=== PATIENT | female | born 1940 | race Caucasian/White ===

== ENCOUNTER 2018-04-29 08:18 | Inpatient (IN) | payer MEDICARE, OTHER ==
[~2018-04-29 08:18] MED LIST: MORPHINE SULFATE 15 MG TABLET.SA PO PRN; TRANEXAMIC ACID 1,000 MG in NORMAL SALINE 100 ML IV PRN; ceFAZolin SODIUM 1 GM VIAL IV PRN
[2018-04-29] MEDS: RINGER'S SOLUTION,LACTATED 1,000 ML IV PRN ×2 (09:21→12:30)
--- NOTE | 2018-04-29 10:26 | ANES ---
Anesthesia Pre Procedure Eval Vitals/Labs: Last Vital Signs Temp 36.6 C 04/29/18 08:37 Pulse 69 04/29/18 08:37 Resp 18 04/29/18 08:37 BP 119/52 04/29/18 08:37 Pulse Ox 94 04/29/18 08:37 HOME MEDICATIONS Amlodipine Besylate 10 mg PO DAILY 01/11/17 [Last Taken 04/29/18] Ca/D3/Mag Ox/Zinc/Supplier Relationship Director/Pio/Bor [Calcium 600+D3 Plus Caplet] 1 ea PO DAILY 01/11/17 [Last Taken 04/28/18] Hydrochlorothiazide [Hydrodiuril] 25 mg PO DAILY 01/11/17 [Last Taken 04/28/18] [place] Oil/[place]-3 Fatty Acids [Fish Oil] 2,000 mg PO DAILY 01/11/17 [Last Taken 04/28/18] hydrocodone 5 mg-acetaminophen 325 mg tablet 1 tab PO Q4H PRN tab 02/11/18 [Last Taken 04/25/18] rosuvastatin 10 mg tablet 10 mg PO DAILY 02/11/18 [Last Taken 04/28/18] tramadol 50 mg tablet 50 mg PO Q12H PRN tab 02/11/18 [Last Taken Unknown] acetaminophen 500 mg tablet 1,000 mg PO BID tab 02/14/18 [Last Taken 04/28/18] trolamine salicylate 10 % lotion 1 applic TP DAILY 02/14/18 [Last Taken 04/28/18] tramadol 50 mg tablet See Rx Instructions PO Q8H #60 tab 03/21/18 [Last Taken Unknown] Fluorouracil 30 gm TP DAILY 04/29/18 [Last Taken 04/28/18] Allergies/Adverse Reactions: Allergies Allergy/AdvReac Type Severity Reaction Status Date / Time naproxen [From [facility]] Allergy Severe Hives, Verified 03/21/18 14:53 difficulty breathing aspirin [From [place]] AdvReac Mild Hives Verified 04/29/18 09:04 citric acid AdvReac Mild Hives Verified 04/29/18 09:04 [From [place]] codeine AdvReac Mild Hives Verified 04/29/18 09:04 penicillin G AdvReac Mild RASH Verified 04/29/18 09:04 sodium bicarbonate AdvReac Mild Hives Verified 04/29/18 09:04 [From [place]] - Planned Procedure Planned Procedure: Right Arthroplasty Total Shoulder Reverse Medication List Reviewed:: Yes Allergies Verified: Yes Medical History (Last Reviewed 04/29/18 @ 10:25 by Brad Tripp CRNA) Current non-drinker of alcohol Current tobacco use Osteoarthritis Wears partial dentures reading glasses skin cancer spots Bilateral shoulder pain Onset Date: Unknown Cervicalgia Onset Date: Unknown Hypercholesteremia Onset Date: Unknown Hypertension Onset Date: Unknown Surgical History (Last Reviewed 04/29/18 @ 10:25 by Brad Tripp CRNA) H/O local excision of skin lesion History of tonsillectomy Colonoscopy planned Onset Date: ~2013 H/O abdominal hysterectomy Onset Date: Unknown Family History (Last Reviewed 04/29/18 @ 10:25 by Brad Tripp CRNA) Brother Cancer Father Myocardial infarction Mother CHF (congestive heart failure) Arthritis Sister Heart disease DJD (degenerative joint disease) Son Alive and well Sister Congenital heart defect fluid around heart Sister Arthritis Daughter Alive and well Daughter Alive and well Daughter - Family Anesthesia History Family History:: no untoward family reactions to anesthesia, no familial bleeding tendencies, no family history of clotting disorders, no family history of premature - Airway/Neck/Teeth Within Normal Limits:: Yes Teeth Condition: Intact Denture Type: Partial- Upper Mallampatti Score: 2 Thyromental (T-M) distance: > 6 cm Mandibulo Hyoid distance: > 3 cm - Respiratory Respiratory: lungs clear - cough Smoking Status: Former smoker Discussed smoking cessation including day of surgery: No Sleep Apnea currently treated: No Sleep Apnea by current assessment: No Discussed Risks/Treatment of ANDREA: No - Cardiovascular Tolerates Activity: Fair Heart Sounds: S1 & S2, Regular - Anesthesia Assessment and Plan ASA Class: PS, II Anesthesia Type Plan: General LMA, Block - Right interscalene nerve block for postop analgesia
--- NOTE | 2018-04-29 13:17 | OR ---
Operative Report - Dictated Report Narrative: DATE OF PROCEDURE: 04/29/2018 PHYSICIAN: Rakan Morrissey MD CO-SURGEON: None STUDENT SERVICES REPRESENTATIVE: Jignesh Fernandes PA-C PREOPERATIVE DIAGNOSIS: Right rotator cuff deficient shoulder arthrosis. POSTOPERATIVE DIAGNOSIS: Right rotator cuff deficient shoulder arthrosis. OPERATIONS AND PROCEDURES: Right reverse total shoulder arthroplasty. ANESTHESIA: General plus regional. COMPLICATIONS: None. DRAINS: None. SPECIMENS: Bone for disposal. ESTIMATED BLOOD LOSS: 100 mL. RETAINED IMPLANTS: 1. DePuy Delta Xtend cementless metaglene. 2. Delta Xtend glenosphere, 38 mm standard. 3. Delta Xtend size 12 modular humeral RUSSELL-coated cementless stem. 4. Size 1 right modular eccentric epiphysis RUSSELL-coated cementless. 5. Delta Xtend standard polyethylene size 38 plus 9 mm. 6. Metaglene locking screws, 30 mm and 36 mm in length. 7. Nonlocking metaglene screws, x2 18 mm . INDICATIONS FOR PROCEDURE: Mrs. Mon is a 77-year-old female with significant past history of rotator cuff tears and deficiency. She had treated these conservatively and had an irreparable rotator cuff with some progression of arthrosis of the shoulder and difficulty with activities of daily living in pain. She was seen in clinic and had failed conservative measures. She wished to proceed with surgical treatment. The risks, benefits, and alternatives were discussed in clinic, including the risk of , blood clots, bleeding, infection, nerve/tendon/blood vessel injury, malposition of components, failure of components, wear or limited range of motion, stiffness, and need for additional procedures, and she wished to proceed. Consent was obtained here in the clinic. DESCRIPTION OF PROCEDURE: After marking the correct extremity in the preoperative holding area, the patient was taken to the operating room. A timeout was performed. IV antibiotics consisting of Ancef were administered prior to procedure. The regional followed by general anesthetic was induced by the nurse applications instructor at my request. She was then transitioned to beach chair position with all bony prominences well padded. The head in neutral, legs with SCDs and supported,and the nonoperative arm supported. The surgical arm was prescrubbed with alchol then prepped and draped in the standard sterile fashion and the skin was covered with ioban. A deltopectoral incision was made and blunt dissection was carried down through the skin. The cephalic vein was identified, protected, and retracted medially. We then went through the deltopectoral interval, exposing the proximal humerus. It was noted that there was no rotator cuff, supraspinatus and infraspinatus tendon, and the subscapularis was deficient with a dislocated biceps tendon. The biceps tendon was intact. A tag suture was placed in the biceps tendon as well as the anterior capsule, and this was elevated off the anterior humerus passing along the bicipital groove and into the rotator cuff interval, exposing the proximal humerus. This was then freed off the proximal humerus. A biceps tenotomy was performed and the shoulder was dislocated. The humeral head was noted to show signs of arthrosis. Next, an entry drill was placed down the humerus centered on the longitudinal axis entering off just onto the articular surface on the humeral head. Next were serial reamers up to the size 12 were utilized, which gave good overall cortical contact. Next, a proximal humeral head cut was performed. We made the cut at approximately 10 degrees of retroversion. This appeared to resect an appropriate amount of humeral head. This was then pinned into place and an oscillating saw was utilized to cut this humeral head, protecting the surrounding soft tissues. We then placed a cap over the proximal humerus and turned our attention to the glenoid. The soft tissues were then elevated off the humeral neck as well as ci rcumferentially around the glenoid. The glenoid was exposed. The remaining biceps tendon and labrum were resected. Using tractors, the glenoid was exposed and a guidewire was placed just posterior and inferior to the center of the glenoid. This was made so that it directed slightly superiorly but otherwise perpendicular to the glenoid on the axillary plane. Protecting the surrounding soft tissues, a reamer was utilized in order to remove the remaining cartilage. A hand scudder was utilized in order to resect the superior cartilage, and this resulted in a good overall appearance of the glenoid. The center drill lug hole was drilled and had good circumferential bone. The metaglene was then impacted into place and oriented for placement of screws along the mid plane in the superior and inferior quadrants of the glenoid as well as anterior to posterior screws. These were drilled and had appropriate overall length of screws on the superior and inferior metaglene screws. Good purchase was obtained with a 30 mm screw superiorly and 36 mm screw inferiorly. The anterior and posterior screws were drilled and 18 mm anterior and 18mm posterior nonlocking screws were placed. We then locked the superior and inferior screws into place. This gave good overall compression down to the glenoid with flat overall appearance and an appropriate alignment. The glenoid sphere was then secured to the metaglene ensuring that it was fully seated and not cross threaded. It was then impacted and final tightening was performed. We returned our attention to the proximal humerus. The proximal humeral reaming guide was placed for an eccentric reamer. This was utilized in order to prepare the proximal humerus. The trial stem was assembled on the back table and impacted into place. After placing the trial stem, we then returned to the metaglene. The glenosphere was then secured to the metaglene, impacted, and tightened ensuring that this was seated completely. We then returned to the humeral component and placed the trials of polyethylene inserts and found that the 9mm gave good overall longitudinal traction with no gapping. The shoulder was able to reach 140 degrees of forward flexion and 140 degrees of abduction, external rotation was to 90 degrees with the arm at 90 of abduction and with fulcrum in the armpit I was unable to hinge the joint out of place, and there was essentially no gapping of the polyethylene off the humeral head nor any signs of impingement on the glenoid neck. We felt that these were the appropriately placed and sized implants. We then dislocated the shoulder, removed the trial implants, thoroughly irrigated the humerus, impacted the final implants into place in the prior determined retroversion. The trial polyethylene was utilized again and was noted that the actual stem and the trial stem were equal in tension, and thus the final polyethylene was impacted into place. The shoulder was reduced, again noted to be stable, was then thoroughly irrigated. The biceps tendon was secured to the surrounding soft tissues using a #1 Ethibond suture. The deltopectoral interval was closed with #0 Vicryl. The deep tissues were then closed with #0 Vicryl, subcutaneous with 3-0 Vicryl, and the skin with molly. Xeroform, 4 x 4, ABD, soft roll, and forearm Sekou was applied. The patient was placed in a shoulder sling, awoken, and transferred to postanesthesia care in stable condition. All sponge, needle, and instrument counts were correct prior to closing the wounds. We will obtain postoperative films and be admitted to the floor for postoperative pain control, IV antibiotics, and starting of physical therapy. We anticipated one to two night hospital stay with medical comanagement.
[2018-04-29] MEDS ORDERED: MAGNESIUM HYDROXIDE 30 ML UDC PO PRN (13:18)
[2018-04-29] MEDS ORDERED: MAG HYDROX/ALUMINUM HYD/SIMETH 30 ML UDC PO PRN (13:18)
[2018-04-29] MEDS ORDERED: diphenhydrAMINE HCL 50 MG/ML VIAL IV PRN (13:18)
[2018-04-29] MEDS ORDERED: DEXTROSE 5%-LACTATED RINGERS 1,000 ML IV PRN (13:18)
[2018-04-29] MEDS ORDERED: ACETAMINOPHEN 500 MG TABLET PO PRN (13:18)
--- NOTE | 2018-04-29 13:34 | ANES ---
Post Anesthesia Discharge - Transfer of Care Transfer of Care handoff given to nurse: Yes - Discharge from PACU Discharge from PACU when meets criteria: Yes - Discharge to ASU Discharge to ASU-no complications/pt stable: Yes
--- NOTE | 2018-04-29 13:36 | ANES ---
Anesthesia Procedure Note Procedure Note: ANESTHESIA PROCEDURE NOTE Date of Procedure: 04/29/2018. Time of procedure: 1045. Performed by: Brad Tripp CRNA Hand Cementer: None. Preprocedure diagnosis: Right rotator cuff deficient shoulder arthrosis. Post procedure diagnosis: Same. Procedure: Right ultrasound guided interacalene nerve block for postoperative analgesia. Indications: The patient is a 77-year-old female, requesting right ultrasound- guided interscalene nerve block for postoperative analgesia related to right reverse total shoulder arthroplasty. Findings: See below. Details of the procedure: The tissue over the intended target site was cleansed with ChloraPrep. 1 ml Lidocaine 1 % was infiltrated to the skin and [place] bcutaneous tissue. Under sterile technique and ultrasound guidance a 22-gauge block needle was inserted to the right brachial plexus nerve bundle between the anterior scalene and the middle scalene muscles. 40 mL's of 0.5% bupivacaine plus epinephrine 1:200,000 was injected after negative aspiration for blood. Needle tip and spread of local anesthetic around the brachial plexus was observed throughout the injection with realtime ultrasound visualization. The needle was removed intact. No complications were noted. The images were retained in the hospital medical database. EBL: Minimal. Fluids: N/A. Specimen: N/A. Post procedure condition: The patient tolerated the procedure well. No complications were noted. Thank you for this consultation. Brad Tripp CRNA
--- NOTE | 2018-04-29 14:55 | ANES ---
Post Anesthesia Assessment - Vital Signs Vitals: Last Vital Signs Temp 36.7 C 04/29/18 14:15 Pulse 61 04/29/18 14:15 Resp 18 04/29/18 14:15 BP 157/68 H 04/29/18 14:15 Pulse Ox 92 L 04/29/18 14:15 Airway Patency: Normal - Mental Status Level Of Consciousness: Awake - Pain Level Pain Score: 0 - N/V Assessment Nausea/Vomiting Presence: None Dehydration:: No
[2018-04-29] MEDS: oxyCODONE HCL/ACETAMINOPHEN 1 TAB TABLET PO PRN ×2 (16:54→21:42)
[2018-04-29] MEDS: SENNOSIDES/DOCUSATE SODIUM 1 TAB TABLET PO SCH (20:17)
[2018-04-29] MEDS: ROSUVASTATIN CALCIUM 10 MG TABLET PO SCH (20:17)
[2018-04-29] MEDS ORDERED: MORPHINE SULFATE 15 MG TABLET.SA PO SCH (21:00)
[2018-04-29] MEDS: MORPHINE SULFATE 2 MG/ML DISP.SYRIN IV PRN (23:27)
[2018-04-29] MEDS: ZOLPIDEM TARTRATE 5 MG TABLET PO PRN (23:33)
[2018-04-30] MEDS: MORPHINE SULFATE 2 MG/ML DISP.SYRIN IV PRN ×3 (00:53→05:04)
[2018-04-30] MEDS: ZOLPIDEM TARTRATE 5 MG TABLET PO PRN ×2 (00:57→23:07)
[2018-04-30] MEDS: oxyCODONE HCL/ACETAMINOPHEN 1 TAB TABLET PO PRN ×5 (02:05→23:07)
[2018-04-30 05:22] LABS: Hematocrit 36.7 % (37.0-47.0); Hemoglobin 12.1 gm/dL (12.5-16.0); Mean Cell Volume 97.1 fl (78-100); Mean Platelet Volume 9.8 fl (8-12.5); Platelet Count 255 K/mm3 (150-450); Red Blood Count 3.78 M/mm3 (4.2-5.4); Red Cell Distribution Width 12.3 % (11.5-14.0); White Blood Count 9.1 K/mm3 (4.0-10.5)
[2018-04-30 05:30] LABS: Anion Gap 10.5 mmol/L (6.8-13.8); BUN/Creatinine Ratio 13.6 (9.0-21.6); Calcium * 8.6 mg/dL (7.9-10.9); Carbon Dioxide 27.1 mmol/L (24-32.6); Estimated Creat Clear 55.9; Potassium 3.6 mmol/L (3.4-4.6)
--- NOTE | 2018-04-30 08:21 | PN ---
Subjective - Date and Time Seen Date: 04/30/18 Time: 08:17 Subjective Narrative: Reports pain control issues. Block wore off around 930 last night. Has not been able to sleep or get comfortable. Reports mild nausea. Objective Objective Narrative: Up in chair. Bandages C/D/I. N/V intact RUE. No swelling in forearm or hand. 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
[2018-04-30] MEDS: ONDANSETRON HCL/PF 2 MG/ML VIAL IV PRN ×3 (08:44→18:17)
[2018-04-30] MEDS: FLUOROURACIL 30 GM TP SCH (08:45)
[2018-04-30] MEDS: HYDROCHLOROTHIAZIDE 25 MG TABLET PO SCH (08:45)
[2018-04-30] MEDS: amLODIPine BESYLATE 10 MG TABLET PO SCH (08:45)
[2018-04-30] MEDS: MORPHINE SULFATE 30 MG TABLET.SA PO SCH ×2 (08:45→20:48)
[2018-04-30] MEDS: OMEGA-3 FATTY ACIDS 1 CAP CAPSULE PO SCH (08:53)
[2018-04-30] MEDS: ROSUVASTATIN CALCIUM 10 MG TABLET PO SCH (20:48)
[2018-04-30] MEDS: SENNOSIDES/DOCUSATE SODIUM 1 TAB TABLET PO SCH (20:48)
[2018-05-01] MEDS: oxyCODONE HCL/ACETAMINOPHEN 1 TAB TABLET PO PRN ×3 (03:11→15:52)
[2018-05-01] MEDS: ONDANSETRON HCL/PF 2 MG/ML VIAL IV PRN ×2 (07:14→11:49)
[2018-05-01] MEDS: MORPHINE SULFATE 30 MG TABLET.SA PO SCH (09:04)
[2018-05-01] MEDS: OMEGA-3 FATTY ACIDS 1 CAP CAPSULE PO SCH (10:07)
[2018-05-01] MEDS: amLODIPine BESYLATE 10 MG TABLET PO SCH (10:07)
[2018-05-01] MEDS: HYDROCHLOROTHIAZIDE 25 MG TABLET PO SCH (10:07)
[2018-05-01] MEDS: FLUOROURACIL 30 GM TP SCH (10:08)
--- NOTE | 2018-05-01 14:51 | DS ---
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 Mon was admitted postoperatively under after undergoing a right reverse total shoulder arthroplasty. She was admitted for pain control and IV antibiotics. Postoperatively she had pain control issues when her block wore off her pain medications were modified. She also had nausea issues as well as loss of appetite. Postop day 1 her hemoglobin was 12.1. She did eventually feel her pain was adequately controlled on 15 mg of MS Contin every 8 hours as well as Percocet every 4 hours as needed for breakthrough pain. She felt comfortable for discharge on postoperative day 2 with this pain medication regimen as well as some Phenergan for nausea. She was instructed to take medications with some food in her stomach. She was discharged instructions to keep the wound clean and dry until molly removal. She is to do her home exercise program as instructed by therapy 3 times a day as well as start outpatient physical therapy for passive range of motion of the shoulder active elbow and wrist range of motion. She did for any fevers greater than 101.0, unusual drainage, or increasing pain. She was discharged with prescription for some Senokot if any constipation. She will follow-up in 10-12 days for staple removal. She is to wear her immobilizer at all times sides for bathing, home exercises and therapy. She is to keep her dressings intact. She was discharged in stable condition. Procedures Performed: see notes below List Procedures: Right reversed total shoulder arthroplasty Results and Findings: Lab Pending Results 04/30/18 05:19: WBC 9.1, RBC 3.78 L, Hgb 12.1 L, Hct 36.7 L, MCV 97.1, MCH 32.0 H, MCHC 33.0, RDW 12.3, Plt Count 255, MPV 9.8 04/30/18 05:19: Sodium 135, Plasma Sodium 136, Potassium 3.6, Chloride 101, Carbon Dioxide 27.1, Anion Gap 10.5, BUN 12, Creatinine 0.88, Est GFR (Non-Af Amer) 66, BUN/Creatinine Ratio 13.6, Random Glucose 133 H, Calcium 8.6 Discharge Location: Home Disposition: Home self-care Condition: Good Discharge Activity: Activity as tolerated, Other - an immobilizer, no active right shoulder range of motion Referrals: Mariela Tello FNP [Primary Care Provider] - Additional Patient Instructions (free text): Follow up Dr Morrissey's Orthopedic appointment on SundayMay 14 at 1:45pm. Outpatient Rehab at [facility] therapy department on SundayMay 01 at 11 am Prescriptions (Any new or edited meds): Morphine Sulfate [Ms Contin] 15 mg PO Q8H #42 tablet.sa oxyCODONE HCL/ACETAMINOPHEN [Percocet 5 MG/325 MG] 2 tab PO Q4H PRN #90 tablet PRN Reason: Moderate Pain (Pain Scale 4-6) Promethazine HCl [Phenergan (Promethazine)] 25 mg PO Q4H PRN #30 tab PRN Reason: nausea/vomiting Sennosides/Docusate Sodium [Senokot-S] 2 tab PO HS #30 tablet Complete Home Medications List: Complete Home Medication List: Amlodipine Besylate 10 mg PO DAILY 01/11/17 Ca/D3/Mag Ox/Zinc/Clinical Supervisor/Pio/Bor [Calcium 600-D3 Plus Caplet] 1 ea PO DAILY 01/11/17 Hydrochlorothiazide [Hydrodiuril] 25 mg PO DAILY 01/11/17 [place] Oil/[place]-3 Fatty Acids [Fish Oil] 2,000 mg PO DAILY 01/11/17 rosuvastatin 10 mg tablet 10 mg PO DAILY 02/11/18 trolamine salicylate 10 % lotion 1 applic TP DAILY 02/14/18 Fluorouracil 30 gm TP DAILY 04/29/18 Morphine Sulfate [Ms Contin] 15 mg PO Q8H #42 tablet.sa 05/01/18 Promethazine HCl [Phenergan (Promethazine)] 25 mg PO Q4H PRN #30 tab 05/01/18 Sennosides/Docusate Sodium [Senokot-S] 2 tab PO HS #30 tablet 05/01/18 oxyCODONE HCL/ACETAMINOPHEN [Percocet 5 MG/325 MG] 2 tab PO Q4H PRN #90 tablet 05/01/18
[2018-05-01 15:31] VITALS: BP 126/39
[2018-05-01] MEDS ORDERED: MORPHINE SULFATE 15 MG TABLET.SA PO SCH (17:00)
[2018-05-02] MEDS ORDERED: OMEGA-3 FATTY ACIDS 1 CAP CAPSULE PO SCH (09:00)
== END 2018-05-01 14:00 | disposition home or self-care (01) | DRG 507 ==
LOC: MS 08:18
PROVIDERS: ADMIT Orthopaedic Surgery; ATTEND Orthopaedic Surgery
CPT/HCPCS: 36415; 73030; 80048; 85027; 97110; 97116; 97161; 97166; J2405